=== PATIENT | male | born 1970 | race Caucasian/White ===

== ENCOUNTER 2016-10-12 17:13 | Emergency (ER) | payer OTHER ==
[2016-10-12] MEDS ORDERED: ACETAMINOPHEN 325 MG TABLET ONE (20:05)
[2016-10-12] MEDS ORDERED: IBUPROFEN 600 MG TABLET ONE (20:05)
--- NOTE | 2016-10-12 20:10 | RAD ---
EXAMINATION: ANKLE-LEFT 3 VIEW CLINICAL INDICATION: Left ankle injury. Pain lateral malleolus. COMPARISON:None FINDINGS: No acute fracture or focal destruction is identified. There is well-corticated ossicle adjacent to the medial malleolus. The tibiotalar and visualized subtalar joint space relationships are maintained. No soft tissue abnormality is identified. IMPRESSION: No evidence of acute fracture involving the left ankle. There is a prior avulsion injury involving the lateral malleolus.
== END 2016-10-12 20:20 | disposition home or self-care (01) ==
LOC: ED 17:13
DX: S82.62XA Displaced fracture of lateral malleolus of left fibula, initial encounter for closed fracture (principal); X50.0XXA Overexertion from strenuous movement or load, initial encounter; Y93.A4 Activity, circuit training; Y92.838 Other recreation area as the place of occurrence of the external cause; Y99.0 Civilian activity done for income or pay
CPT/HCPCS: 73610; 99283 ×2; A9270 ×2